=== PATIENT | male | born 1985 | race Caucasian/White ===

== ENCOUNTER 2016-11-04 17:06 | Emergency (ER) | payer SELFPAY ==
--- NOTE | 2016-11-04 17:16 | EDM.PDOC ---
ED HPI GENERAL MEDICAL PROBLEM - General Stated Complaint: PAIN LT ARM Time Seen by Provider: 11/04/16 17:59 - History of Present Illness INITIAL COMMENTS - FREE TEXT/NARRATIVE: HISTORY AND PHYSICAL: History of present illness: Patient 31-year-old white male just observe acute left hand injury that occurred one hour prior to arrival when he struck it with a hammer he denies other trauma or concern Review of systems: As per history of present illness and below otherwise all systems reviewed and negative. Past medical history: As per history of present illness and as reviewed below otherwise noncontributory. Surgical history: As per history of present illness and as reviewed below otherwise noncontributory. Social history: No reported history of drug or alcohol abuse. Family history: As per history of present illness and as reviewed below otherwise noncontributory. Physical exam: HEENT: Atraumatic, normocephalic, pupils reactive, negative for conjunctival pallor or scleral icterus, mucous membranes moist, throat clear, neck supple, nontender, trachea midline. Lungs: Clear to auscultation, breath sounds equal bilaterally, chest nontender. Heart: S1S2, regular, negative for clicks, rubs, or JVD. Abdomen: Soft, nondistended, nontender. Negative for masses or hepatosplenomegaly. Negative for costovertebral tenderness. Pelvis: Stable nontender. Genitourinary: Deferred. Rectal: Deferred. Extremities: Patient is known to have pain swelling and small ecchymosis over the dorsal aspect of his left hand no point tenderness crepitation CMS and neurovascular exam are unremarkable. Neuro: Awake, alert, oriented. Cranial nerves II through XII unremarkable. Cerebellum unremarkable. Motor and sensory unremarkable throughout. Exam nonfocal. Diagnostics: X-ray left hand Therapeutics: None Impression: #1 acute left hand injury (blunt force trauma) Definitive disposition and diagnosis as appropriate pending reevaluation and review of above. - Related Data Allergies Allergy/AdvReac Type Severity Reaction Status Date / Time No Known Allergies Allergy Verified 11/04/16 17:35 Home Meds: Home Meds . [No Known Home Meds] 11/04/16 [History] ED ROS GENERAL - Review of Systems Review Of Systems: ROS reveals no pertinent complaints other than HPI. ED EXAM, GENERAL - Physical Exam Exam: See Below (See dictation) Course - Vital Signs Last Recorded V/S: Last Vital Signs Temp 36.9 C 11/04/16 17:10 Pulse 78 11/04/16 17:10 Resp 16 11/04/16 17:10 BP 142/86 H 11/04/16 17:10 Pulse Ox 97 11/04/16 17:10 - Orders/Labs/Meds Orders: Active Orders 24 hr Category Date Time Status Hand Comp Min 3V Lt [CR] Stat Exams 11/04/16 17:34 Taken Departure - Departure Time of Disposition: 18:00 Disposition: Home, Self-Care 01 Condition: good Clinical Impression: Hand fracture Additional Instructions: The following information is given to patients seen in the emergency department who are being discharged to home. This information is to outline your options for follow-up care. We provide all patients seen in our emergency department with a follow-up referral. The need for follow-up, as well as the timing and circumstances, are variable depending upon the specifics of your emergency department visit. If you don't have a primary care physician on staff, we will provide you with a referral. We always advise you to contact your personal physician following an emergency department visit to inform them of the circumstance of the visit and for follow-up with them and/or the need for any referrals to a consulting specialist. The emergency department will also refer you to a specialist when appropriate. This referral assures that you have the opportunity for followup care with a specialist. All of these measure are taken in an effort to provide you with optimal care, which includes your followup. Under all circumstances we always encourage you to contact your private physician who remains a resource for coordinating your care. When calling for followup care, please make the office aware that this follow-up is from your recent emergency room visit. If for any reason you are refused follow-up, please contact the emergency department at and asked to speak to the emergency department charge nurse. [facility] Professional Building [address] [place] [address], [address] [place] [address] Splint sling as directed Motrin or Tylenol as directed followup orthopedic clinic call for appointment above return as needed as discussed - My Orders Last 24 Hours: My Active Orders 11/04/16 17:34 Hand Comp Min 3V Lt [CR] Stat - Assessment/Plan Last 24 Hours: My Active Orders 11/04/16 17:34 Hand Comp Min 3V Lt [CR] Stat
[2016-11-04 17:40] VITALS: BP 142/86
--- NOTE | 2016-11-05 14:01 | CR ---
EXAM DATE: 11/04/16 PATIENT'S AGE: 31 Patient: KATIANA RAMIREZ Facility: [place], [place] Site . Site : 1985 Study: XRay Extremity hand [id number] 5:56:47 PM Ordering Physician: Kendall Chu Final Report: INDICATION: Hand pain from injury TECHNIQUE: Hand radiograph 3 views left COMPARISON: None FINDINGS: Bones: Alignment is normal. There is a nondisplaced oblique fracture present in the distal diaphysis of the 2nd metacarpal noted. Joint spaces: The carpal and metacarpal-phalangeal joints are unremarkable in appearance. The interphalangeal joints are normal in appearance. Soft tissues: Unremarkable. No radiopaque foreign bodies are noted. IMPRESSION: 1. There is a nondisplaced oblique fracture present in the distal diaphysis of the 2nd metacarpal noted. Dictated by Brennon Monroe MD @ 11/04/2016 6:01:37 PM Dictated by: Brennon Monroe MD @ 11/04/2016 18:01:41 (Electronic Signature) Report Signed by Proxy and Original Signed Document filed in the Medical Record. [facility]
== END 2016-11-04 18:28 | disposition home or self-care (01) ==
LOC: MW.ED 17:06
DX: S69.92XA Unspecified injury of left wrist, hand and finger(s), initial encounter (principal); W22.8XXA Striking against or struck by other objects, initial encounter
CPT/HCPCS: 73130-26-LT; 73130-LT; 99283

== ENCOUNTER → 2016-11-25 | Outpatient (CLI) | payer SELFPAY ==
--- NOTE | 2016-11-25 12:26 | CR ---
EXAMINATION: Left hand HISTORY: Fracture COMPARISON: 11/04/2016 TECHNIQUE: 3 views FINDINGS: There is a nondisplaced distal second metacarpal fracture again noted. Position and alignm ent appear unchanged. The remaining visualized osseous structures appear intact. Bone mineralization is otherwise normal. IMPRESSION: Stable distal second metacarpal fracture.
== END ==
LOC: MW.CHPS 08:31
PROVIDERS: ATTEND Plastic Surgery
DX: S62.321A Displaced fracture of shaft of second metacarpal bone, left hand, initial encounter for closed fracture (principal)
CPT/HCPCS: 73130-26-LT; 73130-LT

== ENCOUNTER 2018-01-10 06:46 | Day surgery (SDC) | payer BC ==
[2018-01-10] MEDS ORDERED: Lactated Ringers 1,000 ML IV SCH (07:15)
[2018-01-10] MEDS ORDERED: Ondansetron 4 MG/2 ML SDV ONE (07:17)
[2018-01-10] MEDS ORDERED: fentaNYL 100 MCG/2 ML SDV ONE ×2 (07:17→08:02)
[2018-01-10] MEDS ORDERED: Lidocaine 2% 5 ML SDV ONE (07:17)
[2018-01-10] MEDS ORDERED: Midazolam 1 MG/ML 2 ML SDV ONE (07:17)
[2018-01-10] MEDS ORDERED: Propofol 200 MG/20 ML SDV ONE (07:17)
[2018-01-10] MEDS ORDERED: Bupivacaine 0.5% 30 ML SDV ONE (07:18)
[2018-01-10] MEDS ORDERED: ceFAZolin 1 GM Vial ONE (07:18)
--- NOTE | 2018-01-10 07:28 | PCM.PREANE ---
Preanesthetic Assessment - Anesthesia/Transfusion/Family Hx Anesthesia History: Prior Anesthesia Without Reaction Family History of Anesthesia Reaction: No Transfusion History: No Prior Transfusion(s) Intubation History: Unknown - Review of Systems General: No Symptoms Pulmonary: No Symptoms Cardiovascular: No Symptoms Gastrointestinal: No Symptoms Neurological: No Symptoms Other: Reports: None - Physical Assessment Height: 1.78 m Weight: 108.409 kg ASA Class: 2 Mental Status: Alert & Oriented x3 Airway Class: Mallampati = 2 Dentition: Reports: Normal Dentition Thyro-Mental Finger Breadths: 3 Mouth Opening Finger Breadths: 2 ROM/Head Extension: Full Lungs: Clear to Auscultation, Normal Respiratory Effort Cardiovascular: Regular Rate, Regular Rhythm - Allergies Allergies/Adverse Reactions: Allergies Allergy/AdvReac Type Severity Reaction Status Date / Time No Known Allergies Allergy Verified 01/04/18 08:57 - Blood Blood Available: No - Anesthesia Plan Pre-Op Medication Ordered: None - Acknowledgements Anesthesia Type Planned: General Anesthesia Pt an Appropriate Candidate for the Planned Anesthesia: Yes Alternatives and Risks of Anesthesia Discussed w Pt/Guardian: Yes Pt/Guardian Understands and Agrees with Anesthesia Plan: Yes PreAnesthesia Questionnaire - Past Health History Medical/Surgical History: Denies Medical/Surgical History HEENT History: Reports: Other (See Below) Other HEENT History: wears contacts Gastrointestinal History: Reports: GERD, Other (See Below) (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 healed without surgery Endocrine/Metabolic History: Reports: Obesity/BMI 30+ - Past Surgical History Head Surgeries/Procedures: Reports: None GI Surgical History: Reports: Other (See Below) Other GI Surgeries/Procedures: laparotomy with colostomy as an , colostomy closure - SUBSTANCE USE Smoking Status *Q: Current Every Day Smoker Tobacco Use Within Last Twelve Months: Cigarettes Recreational Drug Use History: No - HOME MEDS Home Medications: Home Meds Ranitidine HCl [Zantac 75] 1 tab PO ASDIRECTED PRN 01/04/18 [History] - CURRENT (IN HOUSE) MEDS Current Meds: Current Medications Lactated Ringer's (Ringers, Lactated) 1,000 mls @ 125 mls/hr IV ASDIRECTED PHILIPP Discontinued Medications Bupivacaine HCl (Marcaine 0.5%) Confirm Administered Dose 30 ml .ROUTE .STK-MED ONE Stop: 01/10/18 07:19 Cefazolin Sodium (Ancef) Confirm Administered Dose 1 gm .ROUTE .STK-MED ONE Stop: 01/10/18 07:19 Fentanyl (Sublimaze) Confirm Administered Dose 100 mcg .ROUTE .STK-MED ONE Stop: 01/10/18 07:18 Lidocaine (Xylocaine-Mpf 2%) Confirm Administered Dose 5 ml .ROUTE .STK-MED ONE Stop: 01/10/18 07:18 Midazolam HCl (Versed 1 Mg/Ml) Confirm Administered Dose 2 mg .ROUTE .STK-MED ONE Stop: 01/10/18 07:18 Ondansetron HCl (Zofran) Confirm Administered Dose 4 mg .ROUTE .[employer]-MED ONE Stop: 01/10/18 07:18 Propofol (Diprivan 20 Ml) Confirm Administered Dose 200 mg .ROUTE .[employer]-MED ONE Stop: 01/10/18 07:18
[2018-01-10] MEDS ORDERED: ceFAZolin 2 GM in Premix Bag 1 BAG IV ONE (07:47)
[2018-01-10] MEDS ORDERED: Sodium Chloride 0.9% 2.5 ML Syringe FLUSH PRN (07:47)
[2018-01-10] MEDS ORDERED: Sodium Chloride 0.9% 10 ML Syringe FLUSH PRN (07:47)
[2018-01-10] MEDS ORDERED: fentaNYL 100 MCG/2 ML SDV IVPUSH PRN (08:19)
[2018-01-10] MEDS ORDERED: Ketorolac 30 MG/ML SDV ONE (08:30)
[2018-01-10] MEDS ORDERED: Acetaminophen/oxyCODONE 325-5 MG Tab PO PRN (08:44)
--- NOTE | 2018-01-10 08:46 | PCM.OPNOTE ---
- General Post-Op/Procedure Note Date of Surgery/Procedure: 01/10/18 Operative Procedure(s): Umbilical hernia repair Findings: ~ 1 cm fascial defect just left of the umbilical stalk Pre Op Diagnosis: Umbilical hernia Post-Op Diagnosis: same Anesthesia Technique: General LMA Primary Surgeon: Lesli oMnae Condition: Good
--- NOTE | 2018-01-10 09:20 | PCM.POSTAN ---
POST ANESTHESIA ASSESSMENT - MENTAL STATUS Mental Status: Alert, Oriented - RESPIRATORY Respiratory Status: Respiratory Rate WNL, Airway Patent, O2 Saturation Stable - CARDIOVASCULAR CV Status: Pulse Rate WNL, Blood Pressure Stable - GASTROINTESTINAL GI Status: No Symptoms - PAIN Pain Score: 2 - POST OP HYDRATION Hydration Status: Adequate & Stable - OBSERVATIONS Free Text/Narrative:: no anesthesia problems
--- NOTE | 2018-01-10 10:16 | PCM48HPAN ---
Post Anesthesia Note - EVALUATION WITHIN 48HRS OF ANESTHETIC Vital Signs in Normal Range: Yes Patient Participated in Evaluation: Yes Respiratory Function Stable: Yes Airway Patent: Yes Cardiovascular Function Stable: Yes Hydration Status Stable: Yes Pain Control Satisfactory: Yes Nausea and Vomiting Control Satisfactory: Yes Mental Status Recovered: Yes Resp Rate: 12 - COMMENTS/OBSERVATIONS Free Text/Narrative:: no anesthesia problems
--- NOTE | 2018-01-10 10:31 | OR ---
SURGEON: OSCAR CHENG MD DATE OF PROCEDURE: 01/10/2018 PREOPERATIVE DIAGNOSIS: Reducible umbilical hernia. POSTOPERATIVE DIAGNOSIS: Reducible umbilical hernia. PROCEDURE PERFORMED: Open umbilical hernia repair. ANESTHESIA: General LMA. FLUIDS: See anesthesia record. ESTIMATED BLOOD LOSS: 5 mL. FINDINGS: Approximately 1 cm defect just left of the umbilical stalk. Hernia sac contained reducible preperitoneal fat. COMPLICATIONS: None. INDICATIONS: The patient is a 32-year-old male with a previous history of an exploratory laparotomy as a child. In recent years, he has noticed an umbilical hernia. He can reduce this but is becoming more symptomatic. On physical exam, the patient has an incision on the right side of his umbilicus, but a reducible hernia on the left side of the umbilicus. The patient and I discussed the need for repair. We discussed the procedure, expected perioperative course, and risks including bleeding, infection, or damage to surrounding structures. The patient verbalized understanding and wishes to proceed. PROCEDURE IN DETAIL: The patient was brought into the OR and placed on the OR table in supine position. A time-out was completed verifying the patient's name, age, date of , allergies, and procedure to be performed. General LMA anesthesia was induced. The abdomen was prepped and draped in usual standard fashion. The infraumbilical fold was anesthetized with 0.5% Marcaine plain. A #15 blade was used to make an incision along the infraumbilical fold. Cautery was used to dissect down to the level of subcutaneous fat. I identified the hernia sac. A combination of blunt dissection with a hemostat and sharp dissection with the Metzenbaum scissors was used to clear away the hernia sac from the surrounding tissues. The hernia sac was peeled away from the umbilical skin. A small rent was made in the umbilical sac. This sac appeared to contain preperitoneal fat. Once the sac was completely cleared away from the surrounding tissues, I was able to reduce it back into the abdomen. This revealed an approximately 1 cm defect in the fascia just to the left of the umbilical stalk. This defect was closed with interrupted 0 Ethibond sutures taking care to not injure any structures beneath my defect. Once these were tied, the umbilical defect appeared to be adequately closed. The wound was then irrigated with normal saline. It was closed in layers using 3-0 Vicryl. The skin was then closed with a running 4-0 Monocryl stitch. Steri-Strips and sterile dressings were applied. The patient tolerated the procedure well and was taken to PACU in stable condition. ZECHARIAH BARRIOS /[id number]
[2018-01-10 11:26] VITALS: BP 143/80
== END 2018-01-10 10:25 | disposition home or self-care (01) ==
LOC: MW.SDS 06:46
PROVIDERS: ATTEND Surgery
DX: K42.9 Umbilical hernia without obstruction or gangrene (principal); D42.9 Neoplasm of uncertain behavior of meninges, unspecified; F17.200 Nicotine dependence, unspecified, uncomplicated; K21.9 Gastro-esophageal reflux disease without esophagitis; E66.9 Obesity, unspecified; Z93.3 Colostomy status; Z68.34 Body mass index [BMI] 34.0-34.9, adult; Z98.890 Other specified postprocedural states
CPT/HCPCS: 49585; J1885; J2250; J2405; J3010; J7120; J0690; J2704

== ENCOUNTER 2018-12-08 17:12 | Emergency (ER) | payer BC | END 2018-12-08 20:22 | disposition left against medical advice (07) | LOC: MW.ED 17:12 | DX: Z53.21 Procedure and treatment not carried out due to patient leaving prior to being seen by health care provider (principal) | CPT/HCPCS: 99281 ==